=== PATIENT | female | born 1985 | race Caucasian/White ===

== ENCOUNTER 2016-04-29 01:55 | Emergency (ER) | payer MEDICAID ==
[2016-04-29 02:04] VITALS: BP 124/71; PULSE 95; RESP 18; TEMP 98.2; O2SAT 97
[2016-04-29] MEDS ORDERED: SODIUM CHLOR 0.9% 1000 ML INJ 1,000 ML IV ONE (03:15)
--- NOTE | 2016-04-29 04:22 | PD ---
HPI Chief Complaint: Alcohol/Drug Intoxication Time Seen by Provider: 03:12 Travel History International Travel<30 days: No Contact w/Intl Traveler<30days: No Traveled to known affect area: No History of Present Illness HPI This is a 30-year-old female who presents to the emergency department having used heroin. She was unresponsive. Her called EMS who gave the patient 2 of Narcan and she woke up and started to breathe again. Currently she has no complaints. She says she is only used heroin 3 or 4 times. She says she was not trying to hurt herself and only was trying to help herself get some sleep. She is very eager to go home. PFSH Past Medical History Medical History: Denies Significant Hx Diminished Hearing: No Tetanus Vaccination: Unknown ?: Not LMP: 04/24/16 Past Surgical History Section: Yes Social History Alcohol Use: No Tobacco Use: No Substance Use: No (HEROINE USE X4 PER PT ) Allergies-Medications (Allergen,Severity, Reaction): Coded Allergies: No Known Allergies (Unverified , 04/29/16) Review of Systems Except as stated in HPI: all other systems reviewed are Neg Physical Exam Narrative GENERAL:Well appearing, no acute distress SKIN: Warm and dry. HEAD: Atraumatic. Normocephalic. EYES: Pupils equal and round. No injection or drainage. ENT: Moist mucous membranes NECK: Trachea midline. CARDIOVASCULAR: Regular rate and rhythm. No murmur appreciated. RESPIRATORY: Clear to auscultation. Breath sounds equal bilaterally. GASTROINTESTINAL: Abdomen soft, non-tender, nondistended. MUSCULOSKELETAL: No obvious deformities. NEUROLOGICAL: Awake and alert. No obvious cranial nerve deficits. Moving all extremities. PSYCHIATRIC: Appropriate mood and affect; insight and judgment normal. Data Data Last Documented VS Vital Signs Date Time Temp Pulse Resp B/P Pulse Ox O2 Delivery O2 Flow Rate FiO2 04/29/16 03:07 18 97 04/29/16 02:04 98.2 95 124/71 Orders Sodium Chlor 0.9% 1000 Ml Inj (Ns 1000 M (04/29/16 03:15) ^ Insert Iv (04/29/16 03:14) MDM Medical Decision Making Medical Screen Exam Complete: Yes Emergency Medical Condition: Yes Interpretation(s) Afebrile, no tachycardia, normotensive Differential Diagnosis Opiate overdose Narrative Course This is a 30-year-old female who presents to the emergency department having had an opiate overdose. She received Narcan from EMS. While she was in the emergency department she was awake, alert, and had no episodes of hypoxia. She has no insurance and would prefer not to do any blood work. 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 She was given a liter of IV hydration, reassessed after 3 hours and will be discharged home. Diagnosis Primary Impression: Opiate overdose Qualified Code: T40.601A - Opiate overdose, accidental or unintentional, initial encounter Patient Instructions: General Instructions Additional Instructions: Follow up with Jose Luis Tate in regards to psychiatric or substance related issues at: [address] [place], [place] [id number] Med/Other Pt SpecificInfo: No Change to Meds Disposition: 01 DISCHARGE HOME Condition: Stable Patti Martinez MD Apr 29, 2016 04:22
[2016-04-29 04:43] VITALS: BP 120/68; PULSE 68; RESP 16; O2SAT 99
== END 2016-04-29 05:14 | disposition home or self-care (01) ==
LOC: NEPE 01:55
DX: T40.601A Poisoning by unspecified narcotics, accidental (unintentional), initial encounter (principal)
CPT/HCPCS: 99283; J7030